=== PATIENT | female | born 1990 | race Caucasian/White ===

== ENCOUNTER → 2018-01-12 18:13 | Observation (INO) ==
[2018-01-12 17:35] LABS: Amphetamine Screen,Urine Negative ng/mL (Cutoff=1000); Barbiturate Screen,Urine Negative ng/mL (Cutoff=200); Benzodiazepines Screen,Urine Negative ng/mL (Cutoff=200); Cannabinoid Screen,Urine Negative ng/mL (Cutoff = 50); Cocaine Screen,Urine Negative ng/mL (Cutoff= 300); Opiate Screen,Urine Negative ng/mL (Cutoff=300); Phencyclidine Screen,Urine Negative ng/mL (Cutoff=25)
--- NOTE | 2018-01-12 18:07 | OB/GYN Progress Note ---
Date of Encounter: 01/12/18 Time of Encounter: 18:05 - Assessment and Plan (1) 36 weeks gestation of Current Visit: Yes Status: Acute (2) Fainting spell Current Visit: Yes Status: Acute Pt with no futher incidents. Discussed need for frequent snack and adequate hydration in . Reactive tracing, discharge home with labor and when to return precautions. Subjective - Subjective Interval history: 36+6 weeks gestation, presents to [facility] with complaints of passing out at work. Pt states she was working at [employer] and felt hot and sweaty, then became dizzy and passed out. This occurred around 1230 this afternoon. Pt states prior to this she did not eat anything or have an adequate fluid intake. After passing out pt ate lunch, went home, showered and napped, and has since felt fine. Reports good movement, denies vaginal bleeding or leaking of fluid. Antepartum ROS: movement normal, contractions (rare), no loss of fluid, no vaginal bleeding Objective - Vital Signs Vital Signs: Intake and Output 01/12/18 01/12/18 01/12/18 07:59 15:59 23:59 Other: Weight 81.6 kg Patient Weight 01/12/18 23:59 Weight 81.6 kg - Exam FHR: auscultation normal FHR comments: baseline 135 Abdomen: Present: soft, gravid
== END | disposition home or self-care (01) ==
LOC: 1NENULAB
PROVIDERS: ADMIT Obstetrics & Gynecology; ATTEND Obstetrics & Gynecology